=== PATIENT | female | born 1965 | race Caucasian/White ===

== ENCOUNTER → 2021-01-03 | Outpatient (CLI) | payer BC ==
--- NOTE | 2021-01-03 15:55 | XR ---
Lumbar spine HISTORY: Low back pain 3 views of the lumbar spine, no comparisons There is an anterolisthesis grade 1 L4-5. Lumbar vertebral bodies show preserved height and bone mine ralization. There is partial sacralization of L5. Loss of disc height is present at L5-S1, there is m ild multilevel spondylosis. Sclerosis is present in the posterior elements of the lower lumbar spine. Chronic vascular calcifications are noted incidentally along the aortoiliac distribution. IMPRESSION: Degenerative disc disease and facet arthropathy.
--- NOTE | 2021-01-03 15:56 | XR ---
Right hip HISTORY: Right hip pain for 2 months 2 views the right hip Bone mineralization, joint spaces and alignment are maintained. Calcification along the level of the ischial tuberosity likely related to calcific tendinitis. There probable vascular calcifications with in the pelvis. No fracture or dislocation. IMPRESSION: Normal right hip.
== END | disposition home or self-care (01) ==
LOC: RADXRMAIN 13:05
PROVIDERS: ATTEND Internal Medicine
DX: M25.551 Pain in right hip (principal); M51.36 Other intervertebral disc degeneration, lumbar region; M47.816 Spondylosis without myelopathy or radiculopathy, lumbar region
CPT/HCPCS: 72100; 73502

== ENCOUNTER → 2021-02-22 | Outpatient (CLI) | payer BC ==
--- NOTE | 2021-02-27 12:45 | MM ---
Reason for exam: screening (asymptomatic). Last mammogram was performed 2 years and 2 months ago. History: Benign excisional biopsy of the left breast, 2014. Reductions of both breasts, 1986. Physical Findings: A clinical breast exam by your physician is recommended on an annual basis and results should be correlated with mammographic findings. MG 3D Screening Mammo W/Cad Bilateral CC and MLO view(s) were taken. Prior study comparison: January 06, 2019, mammogram, performed at [place]. November 25, 2017, mammogram, performed at [place]. The breast tissue is heterogeneously dense. This may lower the sensitivity of mammography. Stable benign calcifications. No significant changes when compared with prior studies. ASSESSMENT: Benign, BI-RAD 2 RECOMMENDATION: Routine screening mammogram of both breasts in 1 year.
== END | disposition home or self-care (01) ==
LOC: RADMAMWWP 09:38
PROVIDERS: ATTEND Internal Medicine
DX: Z12.31 Encounter for screening mammogram for malignant neoplasm of breast (principal)
CPT/HCPCS: 77063; 77067

== ENCOUNTER → 2021-07-20 | Outpatient (CLI) | payer BC ==
--- NOTE | 2021-07-20 10:29 | XR ---
EXAMINATION TYPE: XR chest 2V DATE OF EXAM: 07/20/2021 COMPARISON: NONE TECHNIQUE: PA and lateral views submitted. HISTORY: Presurgical testing FINDINGS: The lungs are clear and there is no pneumothorax, pleural effusion, or focal pneumonia. Heart size normal. No overt failure. IMPRESSION: 1. No acute process.
[2021-07-20 11:48] LABS: INR 0.9 (<1.2); Partial Thromboplastin Time 25.5 sec (22.0-30.0); Prothrombin Time 9.6 sec (9.0-12.0)
[2021-07-20 14:38] LABS: Basophils # (A) 0.07 X 10*3/uL (0.00-0.10); Basophils % (A) 0.7 %; Eosinophils # (A) 0.29 X 10*3/uL (0.04-0.35); HCT 48.7 % (37.2-46.3); HGB 15.1 g/dL (12.0-15.0); Immature Grans, Automated 0.4 %; Lymphocytes # (A) 2.66 X 10*3/uL (0.90-5.00); Lymphocytes % (A) 27.9 %; MCH 29.7 pg (27.0-32.0); MCV 95.7 fL (80.0-97.0); Mean Platelet Volume 11.8 fL (9.5-12.2); Monocytes # (A) 0.61 X 10*3/uL (0.20-1.00); Monocytes % (A) 6.4 %; NRBC Per 100 WBC 0 /100 WBCS (0.0-0.0); Neutrophils # (A) 5.85 X 10*3/uL (1.80-7.70); Neutrophils % (A) 61.6 %; Platelet Count 269 X 10*3/uL (140-440); RBC 5.09 X 10*6/uL (4.10-5.20); RDW 12.7 % (11.5-14.5); WBC 9.52 X 10*3/uL (4.50-10.00)
[2021-07-20 16:21] LABS: African American GFR (CKD) 94.9 (60.0-200.0); Anion Gap 9.8 mmol/L (10.00-18.00); BUN/Creat Ratio 13.5 Ratio (12.00-20.00); Blood Urea Nitrogen 10.8 mg/dL (9.0-27.0); Calcium 9.5 mg/dL (8.7-10.3); Carbon Dioxide 29.2 mmol/L (20.0-27.5); Non-African American GFR(CKD) 81.8 (60.0-200.0); Potassium 4.6 mmol/L (3.5-5.5)
[2021-07-20 19:24] LABS: Appearance,Urine Clear (Clear); Bilirubin,Urine Negative (Negative); Blood,Urine Negative (Negative); Color,Urine Yellow (Yellow); Ketones,Urine Negative (Negative); Nitrite,Urine Negative (Negative); PH, Urine 5.5 (5.0-8.0); Specific Gravity,Urine 1.006 (1.001-1.030); Urobilinogen,Urine 0.2 (0.2,1.0)
== END | disposition home or self-care (01) ==
LOC: LABPAT 10:02
PROVIDERS: ATTEND Orthopaedic Surgery Orthopaedic Surgery of the Spine
DX: Z01.812 Encounter for preprocedural laboratory examination (principal); M50.03 Cervical disc disorder with myelopathy, cervicothoracic region
CPT/HCPCS: 36415; 71046; 80048; 81003; 85025; 85610; 85730

== ENCOUNTER → 2021-07-24 | Outpatient (CLI) | payer BC ==
[~2021-07-24] MED LIST: REGADENOSON 0.4 MG/5 ML SYRINGE IV ONE; REGADENOSON 0.4 MG/5 ML SYRINGE IV PRN
--- NOTE | 2021-07-24 14:41 | NM ---
EXAMINATION TYPE: NM stress lexiscan cardiolite DATE OF EXAM: 07/24/2021 COMPARISON: NONE HISTORY: Chest pain TECHNIQUE: After the intravenous administration of 9.6 mCi Tc 99m Sestamibi - Cardiolite resting SPE CT images acquired 45 minutes post injection. The patient received 0.4mg Lexiscan, 25.6 mCi Tc 99m Sestamibi - Stress images obtained [address] injection FINDINGS: Review of stress and rest SPECT images demonstrates small fixed defect involving the apex myocardium. Reduced wall motion activity in this region. No stress-induced reversible ischemia. Estimated left v entricular ejection fraction of 49 %. IMPRESSION: 1. Fixed defect apex myocardium correlate for previous myocardial infarction. No stress-induced rever sible ischemia. 2. Ejection fraction 49%
--- NOTE | 2021-07-26 08:24 | EST ---
EXERCISE STRESS LEXISCAN STRESS TEST: AGE: 56 SEX: F HT: 5'3" WT: 210 lbs. PROTOCOL: Lexiscan STAGE: NA DURATION OF EXERCISE: NA HEART RATE REST: 90 BLOOD PRESSURE REST: 133/91 MAXIMUM HEART RATE ACHIEVED: 128 MAXIMUM BLOOD PRESSURE: 133/91 85% MPHR: 139 100% MPHR: 163 METS: NA INDICATIONS: Abnormal ECG CLINICAL INFORMATION: Baseline EKG revealed a lot of artifact, sinus mechanism, isolated PVCs, poor R-wave progression. With Lexiscan administration, heart rate changed from 90 to 113 beats per minute. Blood pressure changed from 130/90 to 122/72. Patient had isolated PVCs, complained of some cough and headache. EKG remained inconclusive with nonspecific ST-T changes. By EKG criteria, this is an inconclusive Lexiscan stress test with resting EKG changes. The nuclear scan results, which are more significant, will be reported by the radiologist. CYDNEY / IJN: [id number] /
== END | disposition home or self-care (01) ==
LOC: RADNMMAIN 08:49
PROVIDERS: ATTEND Internal Medicine Geriatric Medicine
DX: I49.3 Ventricular premature depolarization (principal); R51.9 Headache, unspecified; R05.9 Cough, unspecified
CPT/HCPCS: 93017; 78452; A9500; J2785

== ENCOUNTER 2021-07-31 06:13 | Observation (INO) | payer BC ==
[2021-07-27 16:06] VITALS: BMI 38.4
[~2021-07-31 06:13] MED LIST changes: +DEXAMETHASONE SOD PHOSPHATE 4 MG/ML 1 ML VIAL IV ONE; +LIDOCAINE 1% (10MG/ML) FOR IV START INTRADERMA PRN; +MIDAZOLAM 2 MG/2 ML VIAL IV PRN; +ONDANSETRON 4 MG/2 ML VIAL IVP ONE; -REGADENOSON 0.4 MG/5 ML SYRINGE IV ONE; -REGADENOSON 0.4 MG/5 ML SYRINGE IV PRN; +ceFAZolin 1,000 MG in SODIUM CHLORIDE 0.9% IRRIGATIO 1,000 ML IRRIGATION PRN
[2021-07-31] MEDS: LACTATED RINGERS 1,000 ML IV SCH ×2 (06:56→23:36)
[2021-07-31] MEDS ORDERED: NEOSTIGMINE 1 MG/ML 10 ML VIAL ONE (07:28)
[2021-07-31] MEDS ORDERED: ROCURONIUM 10 MG/ML (5 ML VIAL) IV ONE (07:28)
[2021-07-31] MEDS ORDERED: PROPOFOL 10 MG/ML 20 ML VIAL IV ONE (07:28)
[2021-07-31] MEDS ORDERED: DEXAMETHASONE SOD PHOSPHATE 10 MG/ML 1 ML VIAL ONE (07:28)
[2021-07-31] MEDS ORDERED: fentaNYL (PF) 50 MCG/ML 2 ML AMP ONE (07:28)
[2021-07-31] MEDS ORDERED: MIDAZOLAM 2 MG/2 ML VIAL ONE (07:28)
[2021-07-31] MEDS ORDERED: SUCCINYLCHOLINE CHLORIDE 100 MG/5 ML SYR IV ONE (07:28)
[2021-07-31] MEDS ORDERED: PHENYLEPHRINE-0.9% NACL SYG 1,000 MCG/10 ML SYRINGE ONE (07:28)
[2021-07-31] MEDS ORDERED: LIDOCAINE 2% INJ 20 MG/ML (2 ML VIAL) ONE (07:28)
[2021-07-31] MEDS ORDERED: GLYCOPYRROLATE 0.2 MG/ML 2 ML VIAL ONE (07:28)
[2021-07-31] MEDS ORDERED: BUPIVACAIN-EPI 0.25%-1:200,000 30 ML VIAL SQ ONE (07:55)
[2021-07-31] MEDS ORDERED: HYDROmorphone 1 MG/ML 1 ML SYRINGE IVP PRN (09:20)
[2021-07-31] MEDS ORDERED: HYDROcodone/APAP 5-325MG 1 EACH TAB PO PRN (09:20)
[2021-07-31] MEDS ORDERED: CYCLOBENZAPRINE 10 MG TAB PO PRN (09:20)
[2021-07-31] MEDS ORDERED: LACTATED RINGERS 1,000 ML IV ONE ×2 (09:21→12:34)
[2021-07-31] MEDS ORDERED: traMADol 50 MG TAB PO PRN (09:21)
--- NOTE | 2021-07-31 09:29 | P.OP ---
Date of Procedure: 07/31/21 Preoperative Diagnosis: Herniated nucleus pulposis C5 6 and C6 7, degenerative disc disease C5 6 C6 7, upper extremity radiculopathy, upper extremity weakness, possible early myelopathy Postoperative Diagnosis: Same Anesthesia: GETA Pathology: none sent Condition: stable Disposition: PACU Description of Procedure: BRIEF OPERATIVE NOTE Preoperative Diagnosis:Herniated nucleus pulposis C5 6 and C6 7, degenerative disc disease C5 6 C6 7, upper extremity radiculopathy, upper extremity weakness, possible early myelopathy Postoperative Diagnosis:Herniated nucleus pulposis C5 6 and C6 7, degenerative disc disease C5 6 C6 7, upper extremity radiculopathy, upper extremity weakness, possible early myelopathy Procedure: Anterior cervical decompression with decompression and fusion C5 6 and C6 7 Placement of interbody graft C5 6 and C6 7 Application of anterior cervical plate C5 6 and 7 Surgeon: Dr. Bolaños Goldsmith Apprentice: Jovany Mcmahon is present throughout the entire the case persistence during positioning, dissection, exposure, visualization, and all crucial elements of the case as well as closure. Anesthesia: General anesthesia Estimated blood loss: Approximately 30 mL Complications: None apparent Components implanted: K2M [place] anterior cervical plate system with screws and Vikos interbody graft bone graft with 1 mL of DBX bone putty Disposition: To recovery room in good stable condition. OPERATIVE INDICATIONS The patient has had long-standing issues in their neck and upper extremities, which have been worsening significantly over the past several months. Patient was found have severe disc degeneration and stenosis at C5 6 and C6 7. She had some moderate disc degeneration and a left her central disc protrusion with some left foraminal stenosis at C4 5. The patient has been through conservative treatment. Her symptoms correlated well with her imaging findings particularly the changes at C5 6 and C6 7. Her primary symptoms stem from C5 6 and C6 7 though she did have a number changes at C4 5 and we had initially planned on including C4 5 level and further surgical intervention as well. However this was denied by her insurance company and after long discussion with the patient she decided pursue further treatment targeting the C5 6 and C6 7 level alone. We discussed various treatment options including surgery, and the patient wishes to proceed with surgery We discussed the risk, patient's alternatives and benefits of surgery including but not limited to, risk of bleeding risk of infection, risk of need for further surgery, risk of decreased, loss of motion, muscle function, malunion nonunion, hardware failure, nerve damage, paralysis, heart attack, and . OPERATIVE SUMMARY After discussing all the risks, patient alternatives and benefits at length, the patient elected to proceed with surgical intervention, signed informed consent, and presented for their procedure. The patient was seen and examined in the preoperative holding area and the surgical site was marked. The patient was given antibiotics and brought to the operating room. The patient was positioned on the operating room table in a supine position being careful to pad any bony prominences and pressure points. The patient was sedated and intubated by anesthesia in standard fashion. Once the airway and C- spine were stabilized the patient's arms were padded and tucked at her side, with her shoulders gently taped. The head was placed in a donut pad with the neck in good neutral alignment and position. We were careful to maintain the patient's cervical spine and good neutral alignment and position throughout. The patient was prepped and draped in a normal standard fashion. An appropriate timeout and keystone protocol performed. We were able to proceed with the surgery. The local wound area was infiltrated with local anesthetic. An incision was made transversely approximately 2-1/2 cm over the appropriate levels at C5 6. Dissection was taken down subcutaneously to the level of the platysma which was split in line with its fibers. Dissection was taken with a carotid approach, with the trachea and esophagus medial and the carotid sheath laterally. We dissected down to the anterior surface of the vertebral bodies. Intraoperative x-ray was taken which showed a marker at the appropriate level at C5 6. With the appropriate level positively confirmed, we were able to proceed with discectomy at the appropriate levels. All of the operative levels were exposed appropriately. The patient had all their twitches back, and there was no evidence of recurrent laryngeal issue. The wound was copiously irrigated and suctioned dry as had been done periodically throughout the case. At the appropriate level/levels, starting at C5 6 7 moving to C6 7 I established an annulotomy with an 11 blade scalpel. A discectomy was performed with a combination of pituitary rongeurs, curettes, a high-speed bur, and Kerrison rongeurs. The posterior longitudinal ligament was taken down as were any posterior osteophytes. This gave good central and bilateral foraminal decompression. There is no evidence of any dural tear or leak. The endplates were prepared with a high-speed bur. With the endplates in good parallel position, I was able to size for the appropriate size interbody graft. The wound was irrigated and suctioned dry the graft was prepared and malleted into position. It had good alignment and position with the anterior surface flush with the anterior surface of the vertebral bodies. This was done similarly the appropriate levels first at C5 6 on the right C6 7. With the grafts intact, I was able to measure and contour and appropriate sized plate. The plate was positioned at the midline over the appropriate levels at C5 6 and 7. Screw holes were established with a hand drill and drill guide. Screws were placed in good alignment and position with excellent bony purchase. They were seated under the locking device. The construct was checked and found to be stable. Intraoperative x-ray was taken which showed good alignment and position of the implants at the appropriate levels. There was no evidence of any dural tear or leak. Good hemostasis was maintained. The wound was copiously irrigated and suctioned dry as had been done periodically throughout the case. The platysma was closed with absorbable suture. The subcutaneous tissue was closed. The subcuticular tissue was closed with absorbable suture. The wound was cleaned and dried and dressed appropriately. A soft cervical collar was placed appropriately. The patient was woken up by anesthesia, extubated, transferred back gently to their hospital bed and brought to the recovery room in good stable condition. The patient will be admitted to the hospital for appropriate postoperative care, medical management and monitoring. We will continue to follow them closely about the postoperative course.
[2021-07-31] MEDS: HYDROmorphone 0.5 MG/0.5 ML SYRINGE IVP PRN ×4 (09:33→22:18)
--- NOTE | 2021-07-31 09:56 | XR ---
EXAMINATION TYPE: XR cervical spine 1V DATE OF EXAM: 07/31/2021 COMPARISON: NONE HISTORY: Needle placement TECHNIQUE: One view submitted FINDINGS: ET tube noted and there is a metallic instrument overlying the lower cervical spine as part of an intraoperative localization. IMPRESSION: Intraoperative localization
--- NOTE | 2021-07-31 09:57 | XR ---
EXAMINATION TYPE: XR cervical spine 1V DATE OF EXAM: 07/31/2021 COMPARISON: NONE HISTORY: Postsurgical change TECHNIQUE: One view submitted FINDINGS: Lateral view demonstrates endotracheal tube and postsurgical changes which are partially ob scured by overlying soft tissues. Grossly alignment near-anatomic. IMPRESSION: Postoperative change
[2021-07-31] MEDS ORDERED: HYDROcodone/APAP 5-325MG 1 EACH TAB PO ONE (10:43)
[2021-07-31] MEDS: ONDANSETRON 4 MG/2 ML VIAL IVP PRN ×2 (12:34→20:15)
[2021-07-31] MEDS: SODIUM CHLORIDE 0.9% 1,000 ML IV SCH ×2 (14:27→22:07)
[2021-07-31] MEDS: GABAPENTIN 300 MG CAP PO SCH ×2 (15:18→22:06)
[2021-07-31] MEDS: BENZOCAINE/MENTHOL LOZENG 1 EACH LOZENGE MUCOUS MEM PRN ×2 (16:35→22:17)
[2021-07-31] MEDS: buPROPion SR 150 MG TABLET.ER PO SCH (20:13)
[2021-07-31 21:06] VITALS: RESP 18; TEMP 98.2
[2021-08-01] MEDS: HYDROmorphone 0.5 MG/0.5 ML SYRINGE IVP PRN (02:18)
[2021-08-01 04:14] VITALS: BP 147/88; PULSE 98
[2021-08-01] MEDS: buPROPion SR 150 MG TABLET.ER PO SCH (08:26)
[2021-08-01] MEDS: GABAPENTIN 300 MG CAP PO SCH (08:27)
[2021-08-01] MEDS: BENZOCAINE/MENTHOL LOZENG 1 EACH LOZENGE MUCOUS MEM PRN (08:41)
--- NOTE | 2021-08-01 08:58 | P.DS ---
Providers Date of admission: 07/31/21 23:43 Expected date of discharge: 08/01/21 Attending physician: Junior Bolaños Primary care physician: Dimas Washburn - Discharge Diagnosis(es) (1) Status post cervical spinal fusion Current Visit: Yes Status: Acute (2) Cervical herniated disc Current Visit: Yes Status: Acute (3) Degenerative cervical disc Current Visit: Yes Status: Acute (4) Radiculopathy affecting upper extremity Current Visit: Yes Status: Acute (5) Upper extremity weakness Current Visit: Yes Status: Acute (6) Headache Current Visit: Yes Status: Acute Hospital Course: This is a pleasant 56-year-old female who presented with C5-6 and C6-C7 herniated nucleus pulposus and degenerative disc disease, upper extremity radiculopathy, upper extremity weakness, and possible early myelopathy who failed outpatient conservative therapy. She was admitted for a C5-6 and C6-7 anterior cervical decompression and fusion. The patient tolerated the procedure well and did well postoperatively. Her pain has been adequately controlled. She is not currently expressing any significant cervical pain. She does feel better function of her hands this morning as compared to prior to surgical intervention. She feels she is ready for discharge today. Condition on day of discharge stable. Patient will be discharged home. Patient was cleared preoperatively for surgery by Dr. Washburn. Patient currently denies any nausea, vomiting, fever, or chills. Patient is eating and voiding freely without difficulty. Patient may shower Optifoam dressing intact. Patient may remove Optifoam dressing in 3 days and shower without a dressing at that time. Patient should refrain from driving until at least after their first follow-up appointment in the office. Patient should avoid excessive neck flexion, extension, rotation, and lateral sidebending; no overhead lifting; no lifting greater than 10 pounds. MAPS has been reviewed today, 08/01/2021, with an Overall Overdose Risk Score of 330. An "Opiod Start Talking" Form has been signed and placed in the patient's chart. A prescription has been written for Ultram 50 mg 1-2 tabs every 6 hours as needed for pain, dispensed #28. She has had difficulty with taking hydrocodone in the past but states she has had benefit with Ultram. Patient's other medical diagnoses include headaches. Patient may resume other previous prescribed home medications while avoiding anti-inflammatories, including Celebrex, over the next 6 weeks postoperatively. Physical Exam on day of discharge: Patient is awake, alert, and oriented 3 Vital signs stable Good chest excursion with deep inspiration and expiration Abdomen soft nontender No signs or symptoms of DVT; no calf pain Full range of motion of the cervical spine with adequate flexion, extension, and bilateral rotation Miller First strength, thumb strength, interosseous strength, biceps strength, triceps strength, and shoulder strength positive sustained bilaterally Soft cervical collar intact Incision is clean, dry, and intact; no erythema, purulence, or signs of infection Optifoam dressing intact Mild bruising over the top of the left shoulder Procedures: C5-6 and C6-7 anterior cervical decompression and fusion Patient Condition at Discharge: Stable Plan - Discharge Summary Discharge Rx Participant: Yes New Discharge Prescriptions: New traMADol HCl [Ultram] 50 mg PO Q6H PRN #56 tab PRN Reason: Pain No Action Celecoxib [CeleBREX] 200 mg PO BID buPROPion SR [Wellbutrin SR] 150 mg PO BID Gabapentin [Neurontin] 300 mg PO TID traMADol HCL [Ultram] 50 mg PO BID PRN PRN Reason: Pain Cyanocobalamin (Vitamin B-12) [Vitamin B-12] 1,000 mcg PO DAILY Ascorbic Acid [Vitamin C] 250 mg PO DAILY Discharge Medication List Ascorbic Acid [Vitamin C] 250 mg PO DAILY 07/27/21 [History] Celecoxib [CeleBREX] 200 mg PO BID 07/27/21 [History] Cyanocobalamin (Vitamin B-12) [Vitamin B-12] 1,000 mcg PO DAILY 07/27/21 [History] Gabapentin [Neurontin] 300 mg PO TID 07/27/21 [History] buPROPion SR [Wellbutrin SR] 150 mg PO BID 07/27/21 [History] traMADol HCL [Ultram] 50 mg PO BID PRN 07/27/21 [History] traMADol HCl [Ultram] 50 mg PO Q6H PRN #56 tab 08/01/21 [Rx] Follow up Appointment(s)/Referral(s): Junior Bolaños DO [Doctor of Osteopathic Medicine] - 08/14/21 2:30 pm Patient Instructions/Handouts: *[facility] - ([place]) Cervical Surgery Dischar ge Instructions, *[facility] - (Anesthesia) Discharge Instructions Outpatient Surgery Activity/Diet/Wound Care/Special Instructions: Keep site clean. May shower with waterproof Optifoam intact. Do not soak in a tub. After 72 hours postoperatively, patient May remove dressing and then may shower with area uncovered. Leave glue intact and allow it to fray off on its own. May ambulate as tolerated. Avoid heavy or rigorous activity. No repetitive bending twisting or lifting. No overhead work. Discharge Disposition: HOME SELF-CARE
[2021-08-01] MEDS ORDERED: ASCORBIC ACID 500 MG TAB PO SCH (09:00)
[2021-08-01] MEDS ORDERED: CYANOCOBALAMIN 500 MCG TAB PO SCH (09:00)
== END 2021-08-01 12:43 | disposition home or self-care (01) ==
LOC: OR 06:13 → 5NMEDONC 09:15 → OR 23:43
PROVIDERS: ADMIT Orthopaedic Surgery Orthopaedic Surgery of the Spine; ATTEND Orthopaedic Surgery Orthopaedic Surgery of the Spine
DX: M50.122 Cervical disc disorder at C5-C6 level with radiculopathy (principal); M48.02 Spinal stenosis, cervical region; Z87.891 Personal history of nicotine dependence; M25.78 Osteophyte, vertebrae; Z98.890 Other specified postprocedural states; R51.9 Headache, unspecified; Z97.3 Presence of spectacles and contact lenses; Z83.3 Family history of diabetes mellitus; Z82.49 Family history of ischemic heart disease and other diseases of the circulatory system; Z97.2 Presence of dental prosthetic device (complete) (partial); Z79.899 Other long term (current) drug therapy
CPT/HCPCS: 86900; 86901; 86850; 72020; 22551; 22552; 22845; 20931; G0378; C1713 ×2; C1762; J2250; J1100; J2710; S0106 ×2; J0690; J2405; J3010; J1170 ×3; J2370; J0330; J2704; J2001

== ENCOUNTER → 2022-03-06 | Outpatient (CLI) | payer BC ==
[2022-03-06 08:48] VITALS: BP 138/88; PULSE 91; RESP 16; TEMP 98.6
--- NOTE | 2022-03-06 09:37 | P.HPOB ---
History of Present Illness H&P Date: 03/06/22 Chief Complaint: The patient is here for her routine gynecologic exam. This is a 56-year-old with an LMP of 2006. She is here to establish with this office. She is status post tubal ligation and endometrial ablation. The endometrial ablation was done in 2006 and she has been essentially amenorrheic since then. She has experienced hot flashes which were worse about 1 year ago, but have improved. She still has occasional hot flashes, but they are tolerable. She is otherwise without gynecologic complaints. Review of Systems The patient's weight has been stable over the last year. Over the past 3 years she believes she has gained about 20 pounds. She denies respiratory, cardiac, or G.I. problems. Past Medical History Past Medical History: Musculoskeletal Disorder Additional Past Medical History / Comment(s): NECK AND LOWER BACK PAIN. 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 History of Any Multi-Drug Resistant Organisms: None Reported Past Surgical History: Ablation, Bladder Surgery, Breast Surgery, Tubal Ligation, Uterine Ablation Additional Past Surgical History / Comment(s): BREAST REDUCTION 1986, BLADDER SUSPENSION, back and neck INJECTIONS WITH DR HAMPTON. Endometrial ABLATION 2007. Neck surgery. Past Anesthesia/Blood Transfusion Reactions: No Reported Reaction Past Psychological History: Depression (She denies current depression.) Additional Psychological History / Comment(s): TREATED FOR DEPRESSION 2013 Smoking Status: Current every day smoker (About one third of a pack per day. This is down from 1 pack per day in the past.) Past Alcohol Use History: None Reported (About 1 case of beer during the entire summer.) Additional Past Alcohol Use History / Comment(s): QUIT SMOKING JUNE 27, 2021, STARTED SMOKING AGAIN SEPTEMBER 2021, SMOKED APPROX 35 YEARS, HX OF 1PPD. Past Drug Use History: None Reported Additional History: She has been since 1998. She does not work outside of the home, but does watch her grandchildren on certain days. - Past Family History Mother Family Medical History: Coronary Artery Disease (CAD), Hypertension Additional Family Medical History / Comment(s): Maternal grandmother had breast cancer. Father Family Medical History: AFIB, Hypertension, Myocardial Infarction (IA) Medications and Allergies Home Medications Medication Instructions Recorded Confirmed Type Gabapentin [Neurontin] 300 mg PO TID 07/27/21 03/06/22 History buPROPion SR [Wellbutrin SR] 150 mg PO BID 07/27/21 03/06/22 History traMADol HCL [Ultram] 50 mg PO BID PRN 07/27/21 03/06/22 History Baclofen 10 mg PO DAILY 03/06/22 03/06/22 History Ibuprofen 800 mg PO TID PRN 03/06/22 03/06/22 History Allergies Allergy/AdvReac Type Severity Reaction Status Date / Time No Known Allergies Allergy Verified 03/06/22 08:39 Exam Vital Signs Temp Pulse Resp BP Pulse Ox 03/06/22 08:43 98.6 F 91 16 138/88 96 Intake and Output 03/05/22 03/06/22 03/06/22 22:59 06:59 14:59 Other: Weight 95.708 kg Height 5 feet 2 inches, weight 211 pounds, BMI 38.6. This is a well-developed well-nourished heavyset white female who is alert and oriented times 3 in no acute distress. HEENT: Within normal limits. NECK: Supple without mass or thyromegaly. CHEST AND LUNGS: Clear to auscultation. HEART: Regular rate and rhythm. BREASTS: Are without mass or discharge. AXILLARY EXAM: Negative for adenopathy. BACK: Negative for CVA tenderness. ABDOMEN: Soft, nontender, without palpable masses. PELVIC EXAM: Normal external genitalia with mild atrophy. Cervix and vagina appear normal with minimal atrophy. There is no unusual discharge. There is no evidence of prolapse. The uterus is midposition, nongravid size and nontender. There are no palpable adnexal masses or tenderness. RECTAL EXAM: Rectovaginal exam is negative for mass or tenderness and is negative for occult blood. EXTREMITIES: Nontender. IMPRESSION: 1. 56-year-old menopausal female with normal gynecologic exam. 2. History of tubal ligation and endometrial ablation in the past. 3. Mild vasomotor symptoms. PLAN: 1. Pap smear cotest was performed. 2. Self breast awareness was discussed with the patient. We have also discussed symptoms associated with inflammatory breast cancer. 3. Screening mammogram is scheduled for 03/07/2022. The order slip was given to the patient for this. 4. She has completed her Covid vaccination series and has received one booster. 5. She has been doing Cologuard testing for colorectal cancer screening. Her last one was in 2020. She will continue to do this through her PCP. 6.Osteoporosis prevention was discussed. I have stressed the importance of a dequate calcium, vitamin D and regular exercise. Recommended amounts of calcium and vitamin D were also discussed. 7. She was advised to return in one year for her annual well woman exam.
--- NOTE | 2022-03-13 15:43 | P.PN ---
Progress Note - Text Progress Note Date: 03/13/22 OUTPATIENT FOLLOW-UP NOTE TEST(S)/RESULTS: Test results from 03/06/2022 include negative Pap smear and negative high-risk HPV testing. Screening mammogram was incomplete and a left breast workup is required. METHOD OF NOTIFICATION: A message with these results was left on the patient's voicemail. PATIENT COMMENTS: DIAGNOSIS: Negative Pap smear cotest. Incomplete screening mammogram requiring a left breast workup. DISCUSSION: The patient is scheduled for a left breast workup on 03/16/2022. PLAN: As above. She was advised to return in one year for her annual well woman exam.
== END ==
LOC: WWCWWP 08:25
PROVIDERS: ATTEND Obstetrics & Gynecology
DX: Z01.419 Encounter for gynecological examination (general) (routine) without abnormal findings (principal); Z78.0 Asymptomatic menopausal state; Z98.51 Tubal ligation status; N99.85 Post endometrial ablation syndrome; N95.9 Unspecified menopausal and perimenopausal disorder

== ENCOUNTER → 2022-03-07 | Outpatient (CLI) | payer BC ==
--- NOTE | 2022-03-08 18:39 | MM ---
Reason for Exam: Screening (asymptomatic). Last mammogram was performed 1 year(s) and 1 month(s) ago. Patient History: Menarche at age 11. First Full-Term at age 24. Postmenopausal. 1986, Bilateral Reduction. 2014, Benign Excisional Biopsy on the left side. Maternal grandmother had breast cancer, age 75. Risk Values: Nina 5 year model risk: 1.7%. NCI Lifetime model risk: 10.2%. Prior Study Comparison: 11/25/2017 Screening Mammogram, [place]. 01/06/2019 Screening Mammogram, [place]. 02/22/2021 Bilateral Screening Mammogram, [facility]. Tissue Density: There are scattered fibroglandular densities. Findings: Analyzed By CAD. Bilateral reduction mammoplasty changes. Global asymmetry posterior upper outer quadrant left breast is unchanged. Microclip superior left breast from prior biopsy. An area of elongated asymmetric density far posterior inferior left MLO view and now demonstrated. Previously, it may have been outside the field of view. Further evaluation is recommended. Otherwise, no significant change. Overall Assessment: Incomplete: need additional imaging evaluation, BI-RAD 0 Management: Special View Mammogram of the left breast. Including spot 3-D MLO, 3-D lateral (include far posterior tissues), 3-D XCCL, and 3-D XCCL views. Targeted left breast ultrasound if any persisting abnormality. [facility] will attempt to contact patient to return for supplemental views and ultrasound if indicated. Electronically signed and approved by: Alberta Ramos M.D. Radiologist
== END | disposition home or self-care (01) ==
LOC: RADMAMWWP 13:10
PROVIDERS: ATTEND Internal Medicine Geriatric Medicine
DX: Z12.31 Encounter for screening mammogram for malignant neoplasm of breast (principal); Z78.0 Asymptomatic menopausal state; Z80.3 Family history of malignant neoplasm of breast
CPT/HCPCS: 77063; 77067

== ENCOUNTER → 2022-03-16 | Outpatient (CLI) | payer BC ==
--- NOTE | 2022-03-16 10:16 | MM ---
Reason for Exam: Additional evaluation requested from abnormal screening. Last screening mammogram was performed less than 1 month ago. Patient History: Menarche at age 11. First Full-Term at age 24. Postmenopausal. 1986, Bilateral Reduction. 2014, Benign Excisional Biopsy on the left side. Maternal grandmother had breast cancer, age 75. Risk Values: Nina 5 year model risk: 1.8%. NCI Lifetime model risk: 10.0%. Prior Study Comparison: 01/06/2019 Screening Mammogram, [place]. 02/22/2021 Bilateral Screening Mammogram, [facility]. 03/07/2022 Bilateral MG 3D screening mammo w/cad, [facility]. Tissue Density: Left: There are scattered fibroglandular densities. Findings: Analyzed By CAD. Focal asymmetry in the marked posterior depth inferior left breast does not go completely away on additional views. Overall Assessment: Incomplete: need additional imaging evaluation, BI-RAD 0 Management: Diagnostic Breast Ultrasound of the left breast. Targeted ultrasound evaluation now. Area was present in 2020 mammogram. Possible summation density. Electronically signed and approved by: Diogo Wagner M.D.
--- NOTE | 2022-03-16 10:40 | USB ---
Reason for Exam: Additional evaluation requested from abnormal screening. Patient History: Menarche at age 11. First Full-Term at age 24. Postmenopausal. 1986, Bilateral Reduction. 2014, Benign Excisional Biopsy on the left side. Maternal grandmother had breast cancer, age 75. Risk Values: Nina 5 year model risk: 1.8%. NCI Lifetime model risk: 10.0%. Technique: Method: Targeted. Prior Study Comparison: 01/06/2019 Screening Mammogram, [place]. 02/22/2021 Bilateral Screening Mammogram, [facility]. 03/07/2022 Bilateral MG 3D screening mammo w/cad, [facility]. Findings: The lower section of the breast of the left breast, the axilla of the left breast and the retroareolar of the left breast were scanned. Targeted ultrasound fails to show worrisome solid or cystic mass.. Overall Assessment: Probably benign, BI-RAD 3 Management: Diagnostic Mammogram of the left breast in 6 months. Area of concern on mammogram could reflect focal asymmetric tissue. It likely was present 2020 mammogram partially imaged. Results were given to the patient verbally at the time of exam. Electronically signed and approved by: Diogo Wagner M.D.
--- NOTE | 2022-03-20 10:20 | P.PN ---
Progress Note - Text Progress Note Date: 03/20/22 OUTPATIENT FOLLOW-UP NOTE TEST(S)/RESULTS: Left breast workup including left breast ultrasound on 03/16/2022 was probably benign. Six-month left diagnostic mammogram was recommended. METHOD OF NOTIFICATION: The patient was given verbal results at the time of her left breast workup IV radiology Department. PATIENT COMMENTS: DIAGNOSIS: Probably benign left breast workup. DISCUSSION: Her initial screening mammogram was done on 03/07/2022. The left breast workup was done on 03/16/2022. The order slip for a left diagnostic mammogram in 6 months will be mailed to the patient. PLAN: As above.
== END | disposition home or self-care (01) ==
LOC: RADMAMWWP 09:39
PROVIDERS: ATTEND Internal Medicine Geriatric Medicine
DX: R92.8 Other abnormal and inconclusive findings on diagnostic imaging of breast (principal); Z78.0 Asymptomatic menopausal state; Z80.3 Family history of malignant neoplasm of breast
CPT/HCPCS: 77061; 77065

== ENCOUNTER → 2022-10-08 | Outpatient (CLI) | payer BC ==
--- NOTE | 2022-10-08 09:12 | MM ---
Reason for Exam: Follow-up at short interval from prior study. Last screening mammogram was performed 7 month(s) ago. Patient History: Menarche at age 11. First Full-Term at age 24. Postmenopausal. 1986, Bilateral Reduction. 2014, Benign Excisional Biopsy on the left side. Maternal grandmother had breast cancer, age 75. Risk Values: Nina 5 year model risk: 1.8%. NCI Lifetime model risk: 10.0%. Prior Study Comparison: 02/22/2021 Bilateral Screening Mammogram, [facility]. 03/07/2022 Bilateral MG 3D screening mammo w/cad, [facility]. 03/16/2022 Left MG 3D work up w/cad , [facility]. Tissue Density: Left: There are scattered fibroglandular densities. Findings: Analyzed By CAD. Asymmetric density lower left MLO is redemonstrated. The ultrasound is recommended. Overall Assessment: Incomplete: need additional imaging evaluation, BI-RAD 0 Management: Diagnostic Breast Ultrasound of the left breast. . Results were given to the patient verbally at the time of exam. Patient should continue monthly self-breast exams. A clinical breast exam by your physician is recommended on an annual basis. This exam should not preclude additional follow-up of suspicious palpable abnormalities. Note on Nina scores and lifetime risk: 1. A Nina score greater than 3% is considered moderate risk. If this is the case, consider specialist referral to assess eligibility for a risk reducing agent. 2. If overall lifetime risk for the development of breast cancer is 20% or higher, the patient may qualify for future screening with alternating mammogram and breast MRI. Electronically signed and approved by: Ish Knott M.D. Radiologis
--- NOTE | 2022-10-08 09:30 | USB ---
Reason for Exam: Follow-up at short interval from prior study. Patient History: Menarche at age 11. First Full-Term at age 24. Postmenopausal. 1986, Bilateral Reduction. 2014, Benign Excisional Biopsy on the left side. Maternal grandmother had breast cancer, age 75. Risk Values: Nina 5 year model risk: 1.8%. NCI Lifetime model risk: 10.0%. Technique: Method: Targeted. Prior Study Comparison: 02/22/2021 Bilateral Screening Mammogram, [facility]. 03/07/2022 Bilateral MG 3D screening mammo w/cad, [facility]. 03/16/2022 Left MG 3D work up w/cad , [facility]. Findings: The lower section of the breast of the left breast, the axilla of the left breast and the retroareolar of the left breast were scanned. No solid or cystic masses are identified.. Overall Assessment: Negative, BI-RAD 1 Management: Screening Mammogram of both breasts in 6 months. A clinical breast exam by your physician is recommended on an annual basis and results should be correlated with mammographic findings. This exam should not preclude additional follow-up of suspicious palpable abnormalities. Results were given to the patient verbally at the time of exam. Electronically signed and approved by: Ish Knott M.D. Radiologis
== END | disposition home or self-care (01) ==
LOC: RADMAMWWP 08:49
PROVIDERS: ATTEND Obstetrics & Gynecology
DX: R92.8 Other abnormal and inconclusive findings on diagnostic imaging of breast (principal); Z78.0 Asymptomatic menopausal state; Z80.3 Family history of malignant neoplasm of breast
CPT/HCPCS: 77061; 77065

== ENCOUNTER → 2023-05-21 | Outpatient (CLI) | payer BC ==
[2023-05-21 14:47] VITALS: BP 139/91; PULSE 106; RESP 18; TEMP 98
--- NOTE | 2023-05-21 15:06 | P.HPOB ---
History of Present Illness H&P Date: 05/21/23 Chief Complaint: The patient is here for her routine gynecologic exam and ma mmogram. This is a 58-year-old with an LMP of 2006. The patient is without gynecologic complaints and denies any postmenopausal bleeding. Review of Systems The patient has gained 5 pounds over the last year. She denies respiratory, cardiac, or G.I. problems. Past Medical History Past Medical History: Musculoskeletal Disorder Additional Past Medical History / Comment(s): NECK AND LOWER BACK PAIN. 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 History of Any Multi-Drug Resistant Organisms: None Reported Past Surgical History: Bladder Surgery, Breast Surgery, Tubal Ligation, Uterine Ablation Additional Past Surgical History / Comment(s): BREAST REDUCTION 1986, BLADDER SUSPENSION, back and neck INJECTIONS WITH DR HAMPTON. Endometrial ABLATION 2007. Neck surgery. Past Anesthesia/Blood Transfusion Reactions: No Reported Reaction Past Psychological History: Depression Additional Psychological History / Comment(s): TREATED FOR DEPRESSION 2013 Smoking Status: Current every day smoker Past Alcohol Use History: None Reported Additional Past Alcohol Use History / Comment(s): QUIT SMOKING JUNE 27, 2021, STARTED SMOKING AGAIN SEPTEMBER 2021, SMOKED APPROX 35 YEARS, HX OF 1PPD. Past Drug Use History: None Reported Additional History: She has been since 1998. Her is now retired. She has a watched her grandchildren uncertain days. - Past Family History Mother Family Medical History: Coronary Artery Disease (CAD), Hypertension Additional Family Medical History / Comment(s): Maternal grandmother had breast cancer. Father Family Medical History: AFIB, Hypertension, Myocardial Infarction (PA) Medications and Allergies Home Medications Medication Instructions Recorded Confirmed Type Baclofen 10 mg PO DAILY 03/06/22 05/21/23 History Ibuprofen 800 mg PO TID PRN 03/06/22 05/21/23 History Triamterene/Hydrochlorothiazid 1 cap PO DAILY 05/21/23 05/21/23 History [Triamterene-Hctz 37.5-25 mg Cp] Allergies Allergy/AdvReac Type Severity Reaction Status Date / Time No Known Allergies Allergy Verified 05/21/23 14:26 Exam Vital Signs Temp Pulse Resp BP Pulse Ox 05/21/23 14:30 98 F 106 H 18 139/91 96 Intake and Output 05/21/23 05/21/2324 06:59 14:59 22:59 Other: Weight 97.976 kg Height 5 feet 2 inches, weight 216 pounds, BMI 39.5. This is a well-developed well-nourished white female who is alert and oriented times 3 in no acute distress. HEENT: Within normal limits. NECK: Supple without mass or thyromegaly. CHEST AND LUNGS: Clear to auscultation. HEART: Regular rate and rhythm. BREASTS: Are without mass or discharge. AXILLARY EXAM: Negative for adenopathy. BACK: Negative for CVA tenderness. ABDOMEN: Soft, nontender, without palpable masses. PELVIC EXAM: Normal external genitalia with mild atrophy. Cervix and vagina appear normal with mild atrophy. There is no unusual discharge. There is no evidence of prolapse. The uterus is midposition, nongravid size and nontender. There are no palpable adnexal masses or tenderness. RECTAL EXAM: Rectovaginal exam is negative for mass or tenderness and is negative for occult blood. EXTREMITIES: Nontender. IMPRESSION: 1. 58-year-old menopausal female with normal gynecologic exam. 2. Mildly elevated blood pressure PLAN: 1. Pap smear was deferred since she had a negative Pap smear cotest on 03/06/2022. 2. Self breast awareness was discussed with the patient. We have also discussed symptoms associated with inflammatory breast cancer. 3. Screening mammogram was done today. 4. Osteoporosis prevention was discussed. I have stressed the importance of adequate calcium, vitamin D and regular exercise. Recommended amounts of calcium and vitamin D were also discussed. We will plan on doing a bone density test next year. 5. We have discussed her elevated blood pressure. I recommended that she check her own blood pressures at home on a regular basis and follow-up with Dr. Washburn or blood pressure elevations. 6. She believes she is due for another Cologuard which was last done about 4 years ago. She will discuss this with Dr. Washburn. 7. She was advised to return in one year for her annual well woman exam.
== END ==
LOC: WWCWWP 13:49
PROVIDERS: ATTEND Obstetrics & Gynecology
DX: Z12.31 Encounter for screening mammogram for malignant neoplasm of breast (principal); R03.0 Elevated blood-pressure reading, without diagnosis of hypertension; F32.A Depression, unspecified; F17.210 Nicotine dependence, cigarettes, uncomplicated; Z80.3 Family history of malignant neoplasm of breast; Z87.39 Personal history of other diseases of the musculoskeletal system and connective tissue; Z98.51 Tubal ligation status; Z78.0 Asymptomatic menopausal state; Z79.899 Other long term (current) drug therapy
CPT/HCPCS: 77067

== ENCOUNTER → 2023-09-24 | Outpatient (CLI) | payer BC ==
--- NOTE | 2023-09-25 12:58 | CA ---
Transthoracic Echo Report Name: Deborah Weldon Age: 58 Gender: F : 1965 Exam Date: 09/24/2023 16:14 Exam Location: [facility] Ht (in): 62 Wt (lb): 220 Ordering Physician: Dimas Washburn MD Attending/Referring Phys: Irais Morley PAC [employer] Line Uphol[employer]rer Rachel Sanders RDCS Procedure CPT: Indications: R60.9 EDEMA Cardiac Hx: Technical Quality: Fair Contrast 1: Total Dose (mL): Contrast 2: Total Dose (mL): MEASUREMENTS (Male / Female) Normal Values 2D ECHO LV Diastolic Diameter PLAX 4.6 cm 4.2 - 5.9 / 3.9 - 5.3 cm LV Systolic Diameter PLAX 3.2 cm IVS Diastolic Thickness 1.0 cm 0.6 - 1.0 / 0.6 - 0.9 cm LVPW Diastolic Thickness 1.0 cm 0.6 - 1.0 / 0.6 - 0.9 cm LV Relative Wall Thickness 0.4 RV Internal Dim ED PLAX 2.1 cm LVOT Diameter 1.8 cm LV Diastolic Volume MOD BP 49.4 cm??? 67 - 155 / 56 - 104 cm??? LV Systolic Volume MOD BP 18.3 cm??? 22 - 58 / 19 - 49 cm??? LV Ejection Fraction MOD BP 62.9 % >= 55 % LV Diastolic Volume MOD 4C 60.4 cm??? LV Systolic Volume MOD 4C 21.2 cm??? LV Ejection Fraction MOD 4C 64.8 % LV Diastolic Length 4C 6.6 cm LV Systolic Length 4C 5.3 cm LV Diastolic Volume MOD 2C 38.7 cm??? LV Systolic Volume MOD 2C 15.7 cm??? LV Ejection Fraction MOD 2C 59.4 % LV Diastolic Length 2C 6.3 cm LV Systolic Length 2C 5.4 cm M-MODE Aortic Root Diameter MM 3.3 cm LA Systolic Diameter MM 3.1 cm LA Ao Ratio MM 0.9 AV Cusp Separation MM 1.1 cm DOPPLER Mitral E Point Velocity 84.8 cm/s Mitral A Point Velocity 96.6 cm/s Mitral E to A Ratio 0.9 MV Deceleration Time 269.1 ms MV E' Velocity 7.8 cm/s Mitral E to MV E' Ratio 10.9 TR Peak Velocity 198.6 cm/s TR Peak Gradient 15.8 mmHg FINDINGS Left Ventricle Left ventricular ejection fraction is estimated at 60-65 %. Mildly increased septal wall thickness. Mildly increased posterior wall thickness. Normal left ventricular systolic function with no obvious regional wall motion abnormalities. Right Ventricle Normal right ventricular size and function. Normal right ventricular size. Right Atrium Normal right atrial size. Left Atrium Normal left atrial size. Mitral Valve Structurally normal mitral valve. Trace mitral regurgitation. No mitral stenosis. Aortic Valve Aortic valve not well visualized. Mild aortic stenosis with a peak gradient of 27mmHg and a mean gradient of 13 mmHg. No aortic regurgitation. Tricuspid Valve Structurally normal tricuspid valve. Trace to mild tricuspid regurgitation. Pulmonic Valve Structurally normal pulmonic valve. Trace pulmonic regurgitation. Pericardium No pericardial or pleural effusion. Aorta Normal size aortic root and proximal ascending aorta. CONCLUSIONS Left ventricular ejection fraction is estimated at 60-65 %. No obvious regional wall motion abnormality Normal LV cavity size. Mild concentric LVH No significant chamber size abnormality Mild aortic stenosis, mean gradient 13 mmHg Previewed by: Dr Loy Rivera (Electronically Signed) Final Date: 25 September 2023 12:57
== END | disposition home or self-care (01) ==
LOC: RADECHMAIN 15:57
PROVIDERS: ATTEND Internal Medicine Geriatric Medicine
DX: R60.9 Edema, unspecified (principal); I35.0 Nonrheumatic aortic (valve) stenosis
CPT/HCPCS: 93306